=== PATIENT | female | born 1985 ===

== ENCOUNTER 2016-12-08 14:22 | Emergency (ER) | payer OTHER ==
[2016-12-08 14:47] VITALS: BP 132/73; PULSE 85; RESP 18; TEMP 98.2; O2SAT 100
--- NOTE | 2016-12-08 15:45 | ED PDOC ---
HPI: Female Pain Time Seen by Provider: 12/08/16 14:59 Chief Complaint (Nursing): Female Genitourinary Chief Complaint (Provider): Female Genitourinary History Per: Patient History/Exam Limitations: no limitations Onset/Duration Of Symptoms: Hrs (6 hrs ) Current Symptoms Are (Timing): Still Present Additional Complaint(s): 31 y/o female presents to the emergency department with a complaint of vaginal bleeding that started at 10am this morning. Patient states she is currently and came to get an ultrasound. Reports she was seen at [facility] in [place], [place] but was advised to visit the ER. Patient only used a total of 3 pad, blood flow was not heavy but did show some clots. No complaints of pain. Denies fever and dysuria. Last known period was on October 15 of this year; . Past Medical History Reviewed: Historical Data, Nursing Documentation, Vital Signs Vital Signs: Last Vital Signs Temp 98.2 F 12/08/16 14:47 Pulse 85 12/08/16 14:47 Resp 18 12/08/16 14:47 BP 132/73 12/08/16 14:47 Pulse Ox 100 12/08/16 14:47 - Medical History PMH: No Chronic Diseases - Surgical History Surgical History: (1) - Family History Family History: States: Unknown Family Hx - Home Medications Home Medications: Ambulatory Orders Medication Instructions Recorded Non-Formulary 0 ea SC ONCE #1 ea 12/08/16 - Allergies Allergies/Adverse Reactions: Allergies Allergy/AdvReac Type Severity Reaction Status Date / Time No Known Allergies Allergy Verified 12/08/16 14:45 Review of Systems ROS Statement: Except As Marked, All Systems Reviewed And Found Negative Constitutional: Negative for: Fever Genitourinary Female: Positive for: Vaginal Bleeding. Negative for: Dysuria Physical Exam - Reviewed Nursing Documentation Reviewed: Yes Vital Signs Reviewed: Yes - Physical Exam Appears: Positive for: Well (Visibly upset that she is bleeding and thinks it is a miscarriage. ), Non-toxic, No Acute Distress Head Exam: Positive for: ATRAUMATIC, NORMOCEPHALIC Skin: Positive for: Normal Color, Warm, Dry Neck: Positive for: Normal, Supple Cardiovascular/Chest: Positive for: Regular Rate, Rhythm. Negative for: Murmur Respiratory: Positive for: Normal Breath Sounds. Negative for: Accessory Muscle Use, Respiratory Distress Gastrointestinal/Abdominal: Positive for: Normal Exam, Soft. Negative for: Tenderness Extremity: Positive for: Normal ROM. Negative for: Pedal Edema Neurologic/Psych: Positive for: Alert, Oriented - Laboratory Results Result Diagrams: 12/08/16 17:35 12/08/16 17:35 - ECG O2 Sat by Pulse Oximetry: 100 (RA) Pulse Ox Interpretation: Normal Medical Decision Making Medical Decision Making: Time: 14:59 Initial impression: Vaginal Bleeding Initial plan: --Type and screen Stat --Basic Metabolic Panel -- Serum --ED Urine (POC) --CBC w/ differential --IV Insertion --Urinalysis Stat --Transvaginal (US) Stat --Revaluation Scribe Attestation: Documented by Dinorah Castro, acting as a scribe for Stephani Zavala MD. Provider Scribe Attestation: All medical record entries made by the Scribe were at my direction and personally dictated by me. I have reviewed the chart and agree that the record accurately reflects my personal performance of the history, physical exam, medical decision making, and the department course for this patient. I have also personally directed, reviewed, and agree with the discharge instructions and disposition. 6.15p - TV ultrasound noted. findings inconclusive. Will d/c with followup in 2- 3 days for repeat hcg level Disposition - Clinical Impression Clinical Impression: Vaginal bleeding in - Patient ED Disposition Is Patient to be Admitted: No Doctor Will See Patient In The: Office Counseled Patient/Family Regarding: Diagnosis, Need For Followup - Disposition Referrals: [facility] [Outside] [facility] [Outside] [facility] [Outside] Disposition: Routine/Home Disposition Time: 18:00 Condition: STABLE Prescriptions: Non-Formulary 0 ea SC ONCE #1 ea Instructions: First Trimester Vaginal Bleed (ED) Print Language: CITIZEN OF [place] - POA Present On Arrival: None
[2016-12-08 17:52] LABS: BASO # 0.1 K/uL (0.0-0.2); BASO % 0.4 % (0.0-2.0); EOS # 0.1 K/uL (0.0-0.7); EOS % 0.4 % (0.0-4.0); HEMATOCRIT 39.4 % (34.0-47.0); LYMPH # 3.3 K/uL (1.0-4.3); LYMPH % 22.1 % (20.0-40.0); MEAN CELL VOLUME 87.3 fl (81.0-99.0); MEAN CORPUSCULAR HEMOGLOBIN 28.3 pg (27.0-31.0); MEAN CORPUSCULAR HGB CONC 32.4 g/dL (33.0-37.0); MEAN PLATELET VOLUME 8.9 fl (7.2-11.7); MONO # 0.7 K/uL (0.0-0.8); MONO % 4.8 % (0.0-10.0); NEUT # 10.7 K/uL (1.8-7.0); NEUT % 72.3 % (50.0-75.0); RED CELL DISTRIBUTION WIDTH 14.6 % (11.5-14.5); WHITE BLOOD COUNT 14.8 K/uL (4.8-10.8)
[2016-12-08 18:03] LABS: BLOOD UREA NITROGEN 7 mg/dl (7-17); CARBON DIOXIDE 21 mmol/L (22-30); CHLORIDE 105 mmol/L (98-107); GFR AFRICAN-AMERICAN > 60; GLUCOSE,RANDOM 106 mg/dL (65-105); SODIUM 135 mmol/l (132-148)
[2016-12-08 18:17] LABS: POTASSIUM 8.2 MMOL/L (3.6-5.0)
[2016-12-08 18:19] LABS: RBC URINE < 1 /hpf (0-3); URINE BACTERIA RARE (<OCC); URINE BILIRUBIN NEGATIVE (NEGATIVE); URINE BLOOD LARGE (NEGATIVE); URINE COLOR STRAW (YELLOW); URINE GLUCOSE (UA) NEG (Normal); URINE KETONE TRACE mg/dL (NEGATIVE); URINE LEUKOCYTE ESTERASE NEG Leu/uL (Negative); URINE PROTEIN NEGATIVE (NEGATIVE); URINE UROBILINOGEN 0.2-1.0 mg/dL (0.2-1.0); WBC URINE 1 /hpf (0-5)
--- NOTE | 2016-12-10 12:22 | US ---
Indication: vag bleeding since 10a; Comparison: None available. Technique: Real-time transabdominal pelvic ultrasound was performed. In addition a transvaginal pelvic ultrasound was necessary to better depict pelvic anatomy Findings: Extremely limited study due to habitus. The uterus measures approximately 11.3 x 7.3 x 4.8 cm. The endometrium is not adequately visualized. No definite gestational sac is identified. Bilateral ovaries are not identified. Nabothian cyst. No significant free fluid evident. Impression: Extremely limited study as above. Bilateral ovaries are not identified. The endometrium is not adequately visualized. No definite gestational sac identified. If indeed the patient is based on serum beta HCG values, the sonographic findings represent either: Very early IUP; embryonic demise; ectopic gestation. Follow-up with serial quantitative serum beta HCG measurements and post OBGYN follow-up is mandatory, since ectopic gestation cannot be excluded based only on sonographic findings.
== END 2016-12-08 18:30 | disposition home or self-care (01) ==
LOC: H.ER 14:22
DX: O20.9 Hemorrhage in early pregnancy, unspecified (principal)